=== PATIENT | female | born 1955 | race Caucasian/White ===

== ENCOUNTER 2018-02-10 10:42 | Outpatient (CLI) | payer MEDICARE | END 2018-02-10 10:43 | disposition home or self-care (01) | LOC: BICRAD 10:42 | PROVIDERS: ATTEND Podiatrist | DX: M25.571 Pain in right ankle and joints of right foot (principal); M19.071 Primary osteoarthritis, right ankle and foot ==

== ENCOUNTER 2018-03-22 12:59 | Outpatient (CLI) | payer MEDICARE | END 2018-03-22 13:00 | disposition home or self-care (01) | LOC: BICMAMMO 12:59 | PROVIDERS: ATTEND Family Medicine | DX: Z12.31 Encounter for screening mammogram for malignant neoplasm of breast (principal); Z80.3 Family history of malignant neoplasm of breast; Z85.820 Personal history of malignant melanoma of skin | CPT/HCPCS: 77063; 77067 ==

== ENCOUNTER 2018-10-07 08:15 | Outpatient (CLI) | payer MEDICARE ==
--- NOTE | 2018-10-07 11:52 | MRI ---
CERVICAL SPINE MRI WITHOUT IV CONTRAST: Date: 10/07/18 HISTORY: Cervical radicular pain, neck pain. COMPARISON: 03/11/15. 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 C2-C3 Disc: Unremarkable. C3-C4 Disc: Minimal disc osteophytosis with mild lateral recess stenosis. C4-C5 Disc: Right lateral disc osteophyte with some narrowing of the right foramen, without signific ant canal stenosis. C5-C6 and C6-C7 Discs: No canal or obvious lateral recess, or foraminal stenosis. C7-T1 Disc: No canal or lateral recess or foraminal stenosis. No spinal cord mass. No abnormal spinal cord signal. Visualized brain and neck soft tissues appear un remarkable. IMPRESSION: 1. Extensive developmental anomalies, stable. Minimal disc osteophytosis at C3-C4 with mild lateral recess stenosis, possibly slightly more prominent than on prior study. 2. Right-sided disc osteophyte changes at C4-C5 with some right foraminal stenosis, possibly very sl ightly more prominent. No evidence for other significant acute process. POS: [facility]
--- NOTE | 2018-10-07 12:24 | MRI ---
LUMBAR SPINE MRI WITHOUT IV CONTRAST: HISTORY: Intervertebral disk disorder lumbar region, scoliosis, low back pain for many years. COMPARISON: 03/11/2015. FINDINGS: Levoscoliosis. Generalized disk desiccation changes and ligament and facet hypertrophic changes. T12-L1 disk: Moderate left lateral recess stenosis. L1-L2 disk: Mild left lateral recess stenosis and mild bilateral foraminal stenosis. L2-L3 disk: Moderate bilateral recess stenosis and foraminal stenosis. L3-L4 disk: Moderate right lateral recess stenosis and mild foraminal stenosis. L4-L5 disk: Unremarkable. L5-S1 disk: Unremarkable. IMPRESSION: 1. Multilevel variable severity mostly mild lateral recess and foraminal stenosis. 2. Generalized spondylosis. 3. Dextroscoliosis. 4. Slightly worsening lateral recess stenosis when compared to prior study. POS: [facility]
== END 2018-10-07 08:16 | disposition home or self-care (01) ==
LOC: BICMRI 08:15
PROVIDERS: ATTEND Nurse Practitioner Family
DX: M51.17 Intervertebral disc disorders with radiculopathy, lumbosacral region (principal); M54.12 Radiculopathy, cervical region; M48.061 Spinal stenosis, lumbar region without neurogenic claudication; M47.26 Other spondylosis with radiculopathy, lumbar region; M41.9 Scoliosis, unspecified; M48.02 Spinal stenosis, cervical region; M25.78 Osteophyte, vertebrae
CPT/HCPCS: 72141; 72148

== ENCOUNTER 2021-09-24 13:07 | Outpatient (CLI) | payer MEDICARE | END 2021-09-24 13:08 | disposition home or self-care (01) | LOC: BICMAMMO 13:07 | PROVIDERS: ATTEND Family Medicine | DX: Z12.31 Encounter for screening mammogram for malignant neoplasm of breast (principal) | CPT/HCPCS: 77063; 77067 ==

== ENCOUNTER 2022-11-24 12:56 | Outpatient (CLI) | payer MEDICARE | END 2022-11-24 12:57 | disposition home or self-care (01) | LOC: BICMAMMO 12:56 | PROVIDERS: ATTEND Family Medicine | DX: Z12.31 Encounter for screening mammogram for malignant neoplasm of breast (principal) | CPT/HCPCS: 77063; 77067 ==

== ENCOUNTER 2023-01-21 14:51 | Outpatient (CLI) | payer MEDICARE | END 2023-01-21 14:52 | disposition home or self-care (01) | LOC: BICMAMMO 14:51 | PROVIDERS: ATTEND Family Medicine | DX: Z13.820 Encounter for screening for osteoporosis (principal); M15.9 Polyosteoarthritis, unspecified; M85.851 Other specified disorders of bone density and structure, right thigh; M85.852 Other specified disorders of bone density and structure, left thigh | CPT/HCPCS: 77080 ==

== ENCOUNTER 2024-05-26 10:33 | Outpatient (CLI) | payer MEDICARE | END 2024-05-26 10:34 | disposition home or self-care (01) | LOC: BICMAMMO 10:33 | PROVIDERS: ATTEND Family Medicine | DX: Z12.31 Encounter for screening mammogram for malignant neoplasm of breast (principal) | CPT/HCPCS: 77063; 77067 ==